=== PATIENT | male | born 1965 | race Caucasian/White ===

== ENCOUNTER 2024-08-02 07:06 | Day surgery (SDC) | payer BC, SELFPAY ==
[2024-07-31 11:29] VITALS: BMI 34.7
[2024-08-02] MEDS: LACTATED RINGERS 1000ML 1,000 ML 25 ML IV (07:24)
[2024-08-02 07:30] VITALS: BP 138/87; PULSE 85; RESP 18; TEMP 36.4; O2SAT 96
--- NOTE | 2024-08-02 07:38 | EXP.ANES.CKL ---
[facility] Disclaimer: The information contained in this section may have been updated after the patient was seen, as this information can be updated by other users. Medical History Chronic ulcerative colitis Schatzki's ring Dysphagia GERD (gastroesophageal reflux disease) Surgical History History of hernia surgery Family History Other No significant family history Social History Smoking Status: Never smoker alcohol intake: never substance use type: denies use current occupational status: employed Travel in the last 8 weeks: None Have you lived/traveled outside [place] in past 30 days?: No Contact w/someone who lives/traveled outside US past 30 days?: No Exposure to someone with infectious disease in past 14 days?: No Do you have a fever (greater than 100.4 F or 38 C)?: No Have you tested positive for COVID-19: No Exposed to someone with COVID-19 in past 14 days?: No Do you have a sore throat?: No Do you have a cough?: No Do you have any weakness?: No Are you experiencing any nausea/vomitting?: No Do you have any diarrhea?: No Are you experiencing any unusual bleeding?: No Do you have any muscle aches/pain?: No Do you have any abdominal pain?: No Are you experiencing loss of taste or smell?: No [facility] Anesthesia Checklist Patient Identification Patient Identification: Arm Band and Verbal (Name & ) Structural Data Admitted From: Home Planned Operative Procedure/s: EGD/Colonoscopy Consent for Planned Operative Procedure(s) Verified: Yes Verified Documents: Surgical Consent and History and Physical NPO Status Verified Time NPO: 03:30 Additional verifications Anesthesia Reactions: No Airway Assessment Mallampati Score:: Class II C-Spine Mobility Assessed: Yes TMJ Mobility Assessed: Yes Dentition: Good Dentition Neurological Assessment Level of Consciousness: Awake Hx Seizures: No Numbness or tingling in extremities: No Anesthesia Plan Anesthesia Risk discussed: Yes Anesthesia Plan: Verified ASA Class: II Anesthesia Type: MAC
[2024-08-02 08:21] VITALS: O2SAT 96
--- NOTE | 2024-08-02 08:30 | EXP.HP ---
History of Present Illness *Admission Date: 08/02/24 *Reason for visit:: Chronic GERD/chronic ulcerative colitis *History of present illness: Mr. Uribe is a 58-year-old gentleman who is here for diagnostic/therapeutic upper endoscopy secondary to dysphagia and chronic GERD and surveillance colonoscopy secondary to chronic ulcerative colitis. The examination is deemed medically necessary for EGD and colonoscopy. The patient has been seen, interviewed and examined prior to the procedure by both myself and the anesthesia provider. [facility] Disclaimer: The information contained in this section may have been updated after the patient was seen, as this information can be updated by other users. Medical History Chronic ulcerative colitis Schatzki's ring Dysphagia GERD (gastroesophageal reflux disease) Surgical History History of hernia surgery Family History Other No significant family history Social History Smoking Status: Never smoker alcohol intake: never substance use type: denies use current occupational status: employed Travel in the last 8 weeks: None Have you lived/traveled outside US in past 30 days?: No Contact w/someone who lives/traveled outside US past 30 days?: No Exposure to someone with infectious disease in past 14 days?: No Do you have a fever (greater than 100.4 F or 38 C)?: No Have you tested positive for COVID-19: No Exposed to someone with COVID-19 in past 14 days?: No Do you have a sore throat?: No Do you have a cough?: No Do you have any weakness?: No Are you experiencing any nausea/vomitting?: No Do you have any diarrhea?: No Are you experiencing any unusual bleeding?: No Do you have any muscle aches/pain?: No Do you have any abdominal pain?: No Are you experiencing loss of taste or smell?: No Review of Systems Review of Systems Review of systems (narrative): Negative *Cardiovascular Comments: Negative *Gastrointestinal Comments: Negative *Genitourinary Comments: Negative *Musculoskeletal Comments: Negative *Neurologic Comments: Negative Meds Home Medications and Allergies Home Medications ?Medication ?Instructions ?Recorded ?Confirmed ?Type ascorbate calcium (vitamin C) 500 500 mg PO DAILY 05/23/24 07/31/24 History mg tablet aspirin 81 mg tablet,delayed 81 mg PO DAILY 05/23/24 07/31/24 History release calcium 315 mg (as 200 tab PO DAILY 05/23/24 07/31/24 History citrate)-ergocalciferol (vit D2) 200 unit tablet dexlansoprazole 60 mg 60 mg PO DAILY 05/23/24 07/31/24 History capsule,biphase delayed release (Dexilant) fenofibrate nanocrystallized 145 145 mg PO DAILY 05/23/24 07/31/24 History mg tablet (Tricor) fexofenadine 60 mg tablet (Allergy 60 mg PO Q12H 05/23/24 07/31/24 History Relief (fexofenadine)) mesalamine 1.2 gram tablet,delayed 2.4 g (2 x 1.2 gram) PO DAILY 90 05/23/24 07/31/24 Rx release days #180 tabs mesalamine 1.2 gram tablet,delayed 1.2 g PO DAILY 05/23/24 07/31/24 History release (Lialda) vonoprazan 10 mg tablet (Voquezna) 10 mg PO DAILY #30 tabs 05/23/24 07/31/24 Rx sodium,potassium,mag sulfates 17.5 See Rx Instructions PO .COMPLEX 06/04/24 07/31/24 Rx gram-3.13 gram-1.6 gram oral soln #354 mL (Suprep Bowel Prep Kit) sildenafil (pulm.hypertension) 20 20 mg PO TID 07/31/24 07/31/24 History mg tablet (Revatio) New Prescriptions to Start Prescriptions: Allergies Allergy/AdvReac Type Severity Reaction Status Date / Time amoxicillin Allergy Rash Verified 08/02/24 07:29 clindamycin Allergy Hives Verified 08/02/24 07:29 Penicillins Allergy Rash Verified 08/02/24 07:29 omeprazole AdvReac Hives Verified 08/02/24 07:29 Exam Data for Last 24 hours Vital signs and Labs for Last 24 Hours: Temp Pulse Resp BP Pulse Ox O2 Del Method 97.5 F L 85 18 138/87 96 Room Air 08/02/24 07:30 12/19/24 07:30 08/02/24 07:30 08/02/24 07:30 08/02/24 07:30 08/02/24 07:30 I & O for Last 24 hours: Intake & Output 07/30/24 07/31/24 08/01/24 08/02/24 23:59 23:59 23:59 23:59 Weight 235 lb *Routine HEENT Exam Head: Present normocephalic Eye: Present EOMI and PERRL ENT: Present mucous membranes moist *Routine Neck Exam Neck: Present supple *Routine Respiratory Exam Respiratory: Present CTA bilaterally *Routine Cardiovascular Exam Cardiovascular: Present RRR *Routine Abdominal Exam Abdominal: Present soft and normoactive bowel sounds; Absent tenderness *Routine Rectal Exam Rectal:: deferred *Routine Genitalia Exam Genitalia:: deferred *Routine Extremities Exam Extremities: Absent cyanosis, clubbing or edema *Routine Skin Exam Skin: Present warm; Absent rash *Routine Neurological Exam Neurological: Present alert and oriented X3 Assessment and Plan *Assessment and plan (1) Dysphagia: Status: Acute Category: Medical Code(s): R13.10 - Dysphagia, unspecified (2) GERD (gastroesophageal reflux disease): Status: Acute Category: Medical Code(s): K21.9 - Gastro-esophageal reflux disease without esophagitis (3) Schatzki's ring: Status: Acute Category: Medical Code(s): K22.2 - Esophageal obstruction (4) Chronic ulcerative colitis: Status: Acute Category: Medical Code(s): K51.90 - Ulcerative colitis, unspecified, without complications Plan A/P: 1. Dysphagia/GERD for upper endoscopy and surveillance secondary to chronic ulcerative colitis for colonoscopy is the preprocedural diagnosis. The patient will be anesthetized/sedated using MAC sedation. The patient has been seen and examined. Cardiac and lung assessment prior to the examination is stable. Proceed with planned EGD and colonoscopy
--- NOTE | 2024-08-02 08:38 | HMH.PROCNOTE ---
[facility] Procedure Note Date: 08/02/24 Time: 08:38 Procedure Note:: Upper Endoscopy Procedure Report: Esophagogastroduodenoscopy with cold biopsies and TTS balloon dilation Endoscopost: Javier No II, MD Referring Physician: Steven Pino MD [address] [place] [address] Date of Procedure: August 02, 2024 Equipment: Olympus GIF 190 standard upper endoscope Sedation: MAC sedation Indications: Mr. Uribe is a 58-year-old gentleman here for diagnostic/therapeutic upper endoscopy. He does have GERD and takes Dexilant and Pepcid as needed. He did have EGD with dilation in July 2022. He did have a distal esophageal Schatzki's ring. Biopsies of the esophagus showed no evidence of eosinophilic esophagitis. He has had some recurrent dysphagia and swallowing difficulties. He reports no abdominal pain or weight loss. Procedure: Prior to the procedure, a history and physical exam was performed, and patient's medications and allergies were reviewed. The risks, benefits and alternatives of the sedation and procedure were discussed with the patient. All questions were answered and informed consent was obtained. The patient was brought to the procedure room. Patient identification and proposed procedure were verified by the physician and the nurse. The patient was placed in a left lateral decubitus position and the scope was passed under direct vision. Throughout the procedure, the patient's blood pressure, pulse, and oxygen saturations were monitored continuously. The upper GI endoscopy was accomplished without difficulty. The patient tolerated the procedure well. Findings: The scope was passed directly into the upper esophagus and advanced to the third portion of the duodenum. The post bulbar duodenum and duodenal bulb were normal with normal mucosa and conniventes. The scope was withdrawn through a normal duodenal bulb and pylorus into the stomach. The antrum, body and fundus were grossly normal. There are a couple fundic gland gastric polyps which were biopsied. Upon retroflexion there was a small 1 to 2 cm hiatal hernia. The scope was then withdrawn into the esophagus. There was a distal fibrotic ring/Schatzki's ring was some mild grade A (LA classification) reflux esophagitis. The original diameter of the ring was approximately 13 mm. This was dilated to 20 mm with a TTS hydrostatic balloon. The entire esophagus was dilated. Biopsies were taken from the midesophagus to rule out EOE. The remainder of the esophageal mucosa was normal. Impression: 1. Distal esophageal fibrotic ring/Schatzki's ring (original diameter approximately 13 mm) dilated to 20 mm with a TTS hydrostatic balloon. 2. Grade A reflux esophagitis with small 1 to 2 cm hiatal hernia 3. Gastric diminutive fundic gland polyp Plan: I will follow-up the biopsies. The patient should have clinical improvement with dilation. I would consider Voquezna because of his mild reflux esophagitis as a treatment for his GERD. I will proceed with surveillance colonoscopy.
--- NOTE | 2024-08-02 08:43 | P.PCN_ITS ---
[facility] Procedure Note Date: 08/02/24 Time: 08:54 Procedure Note:: Colonoscopy Procedure Report: Colonoscopy with cold biopsies Endoscopist: Javier No II, MD Referring physician: Steven Pino MD, [address] [place] [address] Date of Procedure: August 02, 2024 Equipment: Olympus 190 variable stiffness pediatric colonoscope Sedation: MAC sedation Indication: Mr. Uribe is a 58-year-old gentleman who is here for follow-up surveillance colonoscopy. The patient's last colonoscopy was in September 2020. He does have a long history of chronic regional colitis and last colonoscopy showed minimal colitis of the right colon/ascending colon. Biopsies showed no colitis but rather some benign lymphoid aggregates. The patient did have a benign hyperplastic descending polyp removed. He reports no abdominal pain, weight loss, change in his bowel habits or rectal bleeding. He is on mesalamine 2.4 g daily for maintenance of remission therapy. Procedure: Prior to the procedure, a history and physical exam was performed, and patient's medications and allergies were reviewed. The risks, benefits and alternatives of the sedation and procedure were discussed with the patient. All questions were answered and informed consent was obtained. The patient was brought to the procedure room. Patient identification and proposed procedure were verified by the physician and the nurse. The patient was placed in a left lateral decubitus position and the scope was passed under direct vision. Throughout the procedure, the patient's blood pressure, pulse, and oxygen saturations were monitored continuously. The colonoscopy was accomplished without difficulty. The patient tolerated the procedure well. Findings: On digital rectal examination there was normal rectal tone. There were no external hemorrhoids. The colonoscope was introduced through the anal canal to the rectum and advanced to the cecum. The ileocecal valve and appendiceal orifice were identified. The scope was advanced a short distance into the ileum which appeared grossly normal. The scope was then withdrawn into the colon. There was some very minimal mucosal granularity and erythema of the cecum and proximal ascending colon. Biopsies were obtained to rule out mild regional co litis of ascending colon. The remaining transverse and descending colon were normal. There were scattered diverticuli throughout the descending and sigmoid colon (LEFT colon). The rectum itself was normal. Upon retroflexion within the rectum there were grade 1-2 internal hemorrhoids. The preparation was excellent throughout with Mcgill Preparation Score of 9. The cecal time was 12 minutes. Impression: 1. Minimal regional (ascending) granularity with biopsies taken?rule out very mild regional colitis 2. Left-sided diverticulosis 3. Grade 1-2 internal hemorrhoids Plan: I would recommend continuing mesalamine as maintenance therapy. I would also encourage him to continue psyllium Konsyl on a long-term daily maintenance basis. I would recommend surveillance again in 5 years because of his chronic colitis. I will discuss the findings with the patient and family.
[2024-08-02 08:59] VITALS: BP 102/67; PULSE 79; RESP 16; TEMP 36.2; O2SAT 92
[2024-08-02 09:09] VITALS: BP 97/71; PULSE 78; RESP 16; O2SAT 92
[2024-08-02 09:19] VITALS: BP 104/76; PULSE 76; RESP 18; O2SAT 94
[2024-08-02 09:29] VITALS: BP 114/86; PULSE 72; RESP 18; O2SAT 95
== END 2024-08-02 09:40 | disposition home or self-care (01) ==
PROVIDERS: PCP Internal Medicine Adolescent Medicine; Visit Provider Internal Medicine Gastroenterology
PROC: 0DJ08ZZ Inspection of Upper Intestinal Tract, Via Natural or Artificial Opening Endoscopic (ICD-10-PCS; CPT 45378; principal; 2024-08-02 08:00)
DX: R13.10 Dysphagia, unspecified (principal); K21.9 Gastro-esophageal reflux disease without esophagitis; K22.2 Esophageal obstruction; K51.90 Ulcerative colitis, unspecified, without complications; K31.7 Polyp of stomach and duodenum; K21.00 Gastro-esophageal reflux disease with esophagitis, without bleeding; K44.9 Diaphragmatic hernia without obstruction or gangrene; K64.8 Other hemorrhoids; K57.30 Diverticulosis of large intestine without perforation or abscess without bleeding
CPT/HCPCS: 43239; 43249; 45380; C1726; J2704; J7120